=== PATIENT | male | born 1990 | race Caucasian/White ===

== ENCOUNTER 2017-07-16 22:08 | Emergency (ER) | payer OTHER ==
[~2017-07-16] VITALS: Ht 180.3 cm; Wt 87.7 kg
[2017-07-16 23:03] VITALS: BP 136/77
== END 2017-07-16 23:04 | disposition home or self-care (01) ==
LOC: EME 22:08
DX: Z77.21 Contact with and (suspected) exposure to potentially hazardous body fluids (principal); Y99.0 Civilian activity done for income or pay
CPT/HCPCS: 99281; 99283